=== PATIENT | male | born 1990 | race Caucasian/White ===

== ENCOUNTER 2019-11-29 10:41 | Emergency (ER) | payer OTHER, SELFPAY ==
[2019-11-29 11:20] VITALS: BP 123/67; PULSE 103; RESP 20; TEMP 38.4; O2SAT 96
--- NOTE | 2019-11-29 11:41 | ED.URI ---
HPI - URI/Sore Throat General Chief Complaint: Upper Respiratory Infection Stated Complaint: cough Time Seen by Provider: 11/29/19 11:41 Source: patient and family Mode of arrival: ambulatory Limitations: no limitations History of Present Illness HPI Narrative: Patient presents with 2 days of cough fever runny nose and congestion. Patient states both of his children at home are positive for influenza B and now he thinks he has influenza B. Patient states he is nauseated at times but reports good p.o. intake. No diarrhea no abdominal pain normally healthy individual. MD elicited complaint: fever and cough Related Data Allergies Allergy/AdvReac Type Severity Reaction Status Date / Time codeine Allergy Unknown Other Verified 11/29/19 11:28 Review of Systems Review of Systems: Narrative: CONSTITUTIONAL: Denies fever, chills, or sweats. EYES: Denies visual changes, redness, or discharge. ENT: Denies sore throat, or otalgia. CARDIOVASCULAR: Denies chest pain, palpitations, or edema. RESPIRATORY: Denies cough or dyspnea. GASTROINTESTINAL: Denies abdominal pain, nausea, vomiting, or diarrhea. GENITOURINARY: Denies dysuria or hematuria. SKIN: Denies rash or itching. MUSCULOSKELETAL: Denies back pain, joint pain, or myalgia. NEUROLOGIC: Denies headache, numbness, or weakness. PSYCHIATRIC: Denies anxiety or depression. PMFSH Comments At time of signature, agree with nursing past medical, surgical, social and family history. There is no relevant family history pertinent to the presenting complaint Exam Narrative: Exam Narrative: GENERAL: Well-appearing, well-nourished, and in no acute distress. HEAD: Normocephalic, atraumatic. EYES: PERRLA and EOMI. ENT: Nares clear, no rhinorrhea or epistaxis. Mucous membranes moist. NECK: Supple. CHEST: Clear to auscultation. No respiratory distress. HEART: Regular rate and rhythm. No murmur heard. Normal peripheral pulses. ABDOMEN: Soft, nontender, nondistended, normal active bowel sounds. EXTREMITIES: Normal range of motion. No edema. SKIN: Warm, dry, no rash. NEURO: No focal deficits. Alert and oriented x3. Waves Coma Scale Eye Opening: Spontaneous 4 Lisa Coma Scale Motor: Obeys Commands 6 Waves Coma Scale Verbal: Oriented 5 Waves Coma Scale Total 15 Course Vital Signs Vital signs: Vital Signs Temperature 38.4 C H 11/29/19 11:20 Pulse Rate 103 H 11/29/19 11:20 Respiratory Rate 20 11/29/19 11:20 Blood Pressure 123/67 11/29/19 11:20 Pulse Oximetry 96 11/29/19 11:20 Temperature 38.4 C H 11/29/19 11:20 Pulse Rate 103 H 11/29/19 11:20 Respiratory Rate 20 11/29/19 11:20 Blood Pressure 123/67 11/29/19 11:20 Pulse Oximetry 96 11/29/19 11:20 Please BRI schedule a followup visit with your personal physician for further evaluation and treatment. Including recheck and discussion of your blood pressure. If your symptoms persist, change or worsen significantly before you can contact your personal physician then please, without delay, go to the emergency department for further evaluation MDM - URI/Sore Throat Differential Diagnosis Differential diagnosis: Likely upper respiratory infection, otitis media, sinusitis, viral infection and influenza Lab Data Labs: Influenza A Screen Negative Reference Range: Negative Influenza B Screen Positive Reference Range: Negative Critical Care Time Critical Care Time Critical Care Time: No Discharge Plan Discharge Clinical Impression: Influenza, Influenza B Patient Disposition: Home, Self-Care Condition: Stable Instructions: Antibiotic Form Additional Instructions: Stay home - protect others by not exposing them. You are a public health risk if you have the flu. Don't go into public unless necessary. - Wash your hands, cover your cough/sneeze. - Stay hydrated - sip on things frequently. Water, tea, diluted lemon juice, and bone broth are all goo
== END 2019-11-29 11:57 | disposition home or self-care (01) ==
PROVIDERS: Emergency Provider Nurse Practitioner Family; PCP Internal Medicine
DX: J10.1 Influenza due to other identified influenza virus with other respiratory manifestations (principal); J45.909 Unspecified asthma, uncomplicated
CPT/HCPCS: 87804; 99213; G0463

== ENCOUNTER 2025-02-08 11:04 | Outpatient (CLI) | payer OTHER, SELFPAY ==
--- NOTE | ~2025-02-08 | XR_ITS ---
Clinical Indication: Shortness of breath PA and lateral views of the chest: Comparison: None Findings: The lungs are clear, without evidence of focal consolidation or pleural effusion. Cardiome diastinal silhouette is within normal limits. Bones and soft tissues are unremarkable. Impression: Normal chest. Reviewed, dictated and finalized at [facility]. Impression: Normal chest.
--- NOTE | ~2025-02-08 | XR_ITS ---
Supine and upright views of the abdomen Clinical history: Abdominal pain Findings: Bowel gas pattern is nonspecific. No evidence for obstruction or free air. No abnormal mass lesion or calcification is seen. Osseous structures are intact. Impression: No significant abnormality is seen. Reviewed, dictated and finalized at [facility]. Impression: No significant abnormality is seen.
--- OUTSIDE RECORDS SUMMARY | 2025-02-08 11:57 | XMS_ITS | Clinical Summary ---
Author Organization [facility] Mad Mimi Address [address] [place] [address] Care Team Providers Care Digging Machine Operator Name Role Phone Vinod Berg MD Primary Care Provider [phone] Source Comments [facility],non-owned Affiliates and Associated Physician Practices is amultiple site organization consisting of ambulatory clinics and hospital sitesin [place], [place], [place] and [place]. This disclosure is being madepursuant to the Care Everywhere program and may not contain all information available regarding this patient. Last updated 18.[facility] Allergies Active Allergy Reactions Criticality Noted Date Comments Codeine Rash Medium 10/13/2016 Medications * Be aware that medications may not be up to date on this document. Alwaysverify current medications with the patient. No known medications Social History Tobacco Use Types Packs/Day Years Used Date Smoking Tobacco: Every Day Sex and Gender Information Value Date Recorded Sex Assigned at Not on file Legal Sex Male 11:29 AM DRILLING MANAGER Gender Identity Not on file Sexual Orientation Not on file Last Filed Vital Signs Vital Sign Reading Time Taken Comments Blood Pressure 122/80 10/13/2016 11:58 AM DRILLING MANAGER Pulse 98 10/13/2016 11:58 AM DRILLING MANAGER Temperature 37.2 C (99 F) 10/13/2016 11:58 AM DRILLING MANAGER Respiratory Rate - - Oxygen Saturation - - Inhaled Oxygen Concentration - - Weight 81.6 kg (180 lb) 10/13/2016 11:58 AM DRILLING MANAGER Height 177.8 cm (5' 10 ) 10/13/2016 11:58 AM DRILLING MANAGER Body Mass Index 25.83 10/13/2016 11:58 AM DRILLING MANAGER Plan of Treatment Health Maintenance Due Date Last Done Comments HIV SCREENING 2007 HEPATITIS C SCREENING 05/13/2010 DTAP/TDAP/TD VACCINES (1 - Tdap) 2011 HEPATITIS B VACCINE (1 of 3 - 19+ 3-dose series) 2011 COVID-19 VACCINE (1 - 2023-2 5 season) 2024 DEPRESSION SCREENING 10/25/2024 INFLUENZA VACCINE (Season Ended) 2025 ZOSTER VACCINE (1 of 2) 2042 HIB VACCINE Aged Out No longer eligi ble based on patient's age to complete this topic HPV VACCINE Aged Out No longer eligi ble based on patient's age to complete this topic MENINGOCOCCAL (Group B) VACC INE SHARED DECISION-MAKING Aged Out No longer eligibl e based on patient's age to complete this topic MENINGOCOCCAL GROUPS A/C/Y/W VACCINE Aged Out No longer eligible b ased on patient's age to complete this topic PNEUMOCOCCAL VACCINE Aged Out No long er eligible based on patient's age to complete this topic Insurance Care Teams Digging Machine Operator Relationship Specialty Start Date End Date Vinod Berg MD PCP - General Family Medicine 10/13/16
--- OUTSIDE RECORDS SUMMARY | 2025-02-08 11:58 | XMS_ITS | Referral Summary ---
Author Organization [facility] [address] [facility] lt Address [address] [place] [address] Care Team Providers Care Fine Grade Bulldozer Operator Name Role Phone zEio Rdz MD Primary Care Provider Allergies Active Allergy Reactions Criticality Noted Date Comments Codeine Rash Medium 08/05/2019 Medications omeprazole (PriLOSEC) 40 mg capsuleIndicatio ns:Gastroesophag eal reflux disease, unspecified whether esophagitis present Take 1 capsule (40 mg total) by mouth daily 60 capsule 11/27/2021 Active escitalopram (LEXAPRO) 10 mg tabletIndication s:Anxiety Take 1 tablet (10 mg total) by mouth daily 60 tablet 11/27/2021 Active Active Problems Problem Noted Date Diagnosed Date Gastroesophageal reflux disease 11/27/2021 Assessment & Plan (11/27/2021 10:22 AM LINER MACHINE OPERATOR HELPER): - chronic condition - used to use omeprazole OTC, has been off medications - restart Omeprazole 40 mg daily - likely contributing to his nausea and vomiting Recommend the following changes: - Avoid trigger foods (such as spicy foods, fried foods, onions, peppermints, chocolate, high acid foods and juices, caffeinated beverages, carbonated beverages, and tomato based products). - Avoid alcohol take. - Avoid routine use of NSAIDs. - Avoid lying down for 2-3 hours after eating. - Weight loss encouraged. - Eat smaller meals. - Avoid tobacco use. - Sleep on left side. - may sleep with bed propped. - Avoid wearing tight clothing that puts pressure on the stomach. Anxiety 10/30/2021 Assessment & Plan (11/27/2021 10:27 AM LINER MACHINE OPERATOR HELPER): - recntly noted 4 weeks ago, not at goal - anxiety noted by prior provider - was started on Zoloft, and switch to Lexapro 10 mg daily - given history of loose stools, Zoloft would not be ideal choice - follow up 8 weeks with me Assessment & Plan (10/30/2021 10:53 AM LINER MACHINE OPERATOR HELPER): Shortness of breath more likely due to anxiety than cardiopulm. Does have strong smoking hx, hx of cancer in the family in first degree relatives Will get cxr to r/o out underlying path vs issues from previous covid pna Gastritis 10/30/2021 Generalized abdominal pain 10/30/2021 Assessment & Plan (11/27/2021 10:25 AM LINER MACHINE OPERATOR HELPER): - reports chronic history of abdominal pain, loose stools for over 2-3 years - no weight loss, no blood in stools - no rectal pain - never had colonoscopy - better with bowel movement - worse with stress - likely Irritable bowel syndrome - starting SSRI for anxiety - GI referral placed as IBS is a diagnosis of exclusion, will likely need a scope - recently had very limited stool study, can use more studies but will defer at this time since referral is being placed Former smoker 05/26/2021 Assessment & Plan (05/26/2021 3:41 PM CDT): Social History Tobacco Use Smoking Status Former Smoker Packs/day: 1.25 Years: 6.00 Pack years: 7.50 Types: Cigarettes Quit date: 10/25/2015 Years since quittin.5 Smokeless Tobacco Never Used Chronic right shoulder pain 05/26/2021 Assessment & Plan (10/30/2021 10:53 AM LINER MACHINE OPERATOR HELPER): Improved at this time Assessment & Plan (05/26/2021 4:00 PM CDT): - been going on for 3+ years - no prior surgery, no hx of injury/accident/trauma - never had physical therapy - reports right arm weakness and pain - limited physical exam due to video - due to chronic nature, recommend orthopedics referral for further evaluation, referral placed - not on any medications for this - he does work out and lift weights Annual visit for general roberto lt medical examination with abnormal findings 05/26/2021 Assessment & Plan (05/26/2021 4:00 PM CDT): - Acute concerns: right shoulder pain - Mental health: no significant psychiatric/mental health conditions affecting her day to day functioning - Nutrition: Stressed importance of moderation in sodium/caffeine intake, saturated fat and cholesterol, caloric balance, sufficient intake of fresh fruits, vegetables Immunizations Immunization Administration Dates Next Due DTP 10/13/1994,08/27/1993,1992 ,1992 DTaP 11/16/1996 HiB 11/26/1993,08/27/1993,1992 ,1992 Influenza, Unspecified 07/25/2021(Deferr ed: Patient Refused),07/25/2020(Deferred: Patient Refused) MMR 11/16/1996,11/26/1993 OPV 11/16/1996,1992,1992 Tdap 10/30/2021 Social History Tobacco Use Types Packs/Day Years Used Date Smoking Tobacco: Former Cigarettes 1.3 6 0 10/25/2009 - 10/25/2015 Smokeless Tobacco: Never PHQ-2 Answer Date Recorded PHQ-2 Total Score (If total score is 3 or more points, staff should administer the PHQ-9) 0 11/27/2021 Personal Safety Answer Date Recorded Getting School Help Needed Not on file 12/19 Sex and Gender Information Value Date Recorded Sex Assigned at Not on file Legal Sex Male 6:41 PM LINER MACHINE OPERATOR HELPER Gender Identity Male 05/26/2021 11:59 AM CDT Sexual Orientation Straight 05/26/2021 11 :59 AM CDT Last Filed Vital Signs Vital Sign Reading Time Taken Comments Blood Pressure 104/76 10/30/2021 10:15 AM LINER MACHINE OPERATOR HELPER Pulse 77 10/30/2021 10:15 AM LINER MACHINE OPERATOR HELPER Temperature 36.7 C (98 F) 06/01/2020 8:29 AM CDT Respiratory Rate 16 10/30/2021 10:15 AM LINER MACHINE OPERATOR HELPER Oxygen Saturation 97% 10/30/2021 10:15 AM LINER MACHINE OPERATOR HELPER Inhaled Oxygen Concentration - - Weight 95.3 kg (210 lb) 11/27/2021 9:41 AM LINER MACHINE OPERATOR HELPER Height 177.8 cm (5' 10 ) 11/27/2021 9:41 AM LINER MACHINE OPERATOR HELPER Body Mass Index 30.13 11/27/2021 9:41 AM LINER MACHINE OPERATOR HELPER Plan of Treatment Not on file Insurance [employer]US Care Teams Fine Grade Bulldozer Operator Relationship Specialty Start Date End Date Ezio Rdz MD PCP - General Family Medicine 05/26/21
--- OUTSIDE RECORDS SUMMARY | 2025-02-08 11:58 | XMS_ITS | Continuity of Care Document ---
Author Organization [facility] Address [address] [place] [address] [place] [address] Phone Care Team Providers Care Final Rail Cutter Name Role Phone Johan Suárez MD Unavailable Unavailable Advance Directives Directive Yes / No Effective Date File Name No Information Encounters Encounter Description Practice Location Reason(s) For Visit Diagnoses Date Provider Providers Copied on Encounter [facility], [id number] [place] [address] [address], [place], [place], [id number], tel:[phone] [place] Professional No Information 0-200 [address] Jose Armando Prado. [address], [place], [id number], . tel:[phone] Referring Provider: Johan Roman [address] [place], [address] . tel:[phone] Family History Family Member Type Diagnosis Age At Onset No Information Payers Payer name Insurance type Covered libertarian ID Authoriza tion(s) Medicaid [facility] [id number] Social History Type Description Quantity Date Captured Comments Sex Male Smoking Status No Information Chief Complaint And Reason For Visit No Information Reason For Referral Reason For Referral No Information History Of Present Illness Encounter Date Complaint History Of Prese nt Illness No Information Functional Status Date Functional Assessmen t No Information Instructions Date Instruction Additional Infor mation No Information Assessments Type Assessment Date No Information Patient Care Teams Name Effective Dates (start - stop) Status Members No Information
--- OUTSIDE RECORDS SUMMARY | 2025-02-08 11:58 | XMS_ITS | Clinical Summary ---
Author Organization [facility] [address] [facility] Address [address] [place] [address] Care Team Providers Care Radio Performer Name Role Phone Ezio Rdz MD Primary Care Provider Allergies Active [...] 11/27/2021 Assessment & Plan (11/27/2021 10:22 AM SILK CREPE MACHINE OPERATOR): - chronic condition - used to use [...] 10/30/2021 Assessment & Plan (11/27/2021 10:27 AM SILK CREPE MACHINE OPERATOR): - recntly noted 4 weeks ago, not at goal - anxiety noted by prior provider - was started on Zoloft, and switch to Lexapro 10 mg daily - given history of loose stools, Zoloft would not be ideal choice - follow up 8 weeks with me Assessment & Plan (10/30/2021 10:53 AM SILK CREPE MACHINE OPERATOR): Shortness of breath more likely due to anxiety than cardiopulm. Does have strong smoking hx, hx of cancer in the family in first degree relatives Will get cxr to r/o out underlying path vs issues from previous covid pna Gastritis 10/30/2021 Generalized abdominal pain 10/30/2021 Assessment & Plan (11/27/2021 10:25 AM SILK CREPE MACHINE OPERATOR): - reports chronic history of abdominal pain, [...] 05/26/2021 Assessment & Plan (10/30/2021 10:53 AM SILK CREPE MACHINE OPERATOR): Improved at this time Assessment & Plan [...] Refused) MMR 11/16/1996,11/26/1993 OPV 11/16/1996,1992,1992 Tdap 10/30/2021 Surgical History Surgery Date Site/Laterality Comments TONSILLECTOMY THROAT SURGERY Medical History Medical History Date Comments No pertinent past medical history Migraines Family History Medical History Relation Name Comments No Known Problems Brother No Known Problems Daughter 1 No Known Problems Daughter 2 No Known Problems Daughter 3 Cancer Father Brain Lung cancer Father Pancreatic cancer Father smoking Father No Known Problems Mother No Known Problems Sister Relation Name Status Comments Brother Alive Daughter 1 Alive Daughter 2 Alive Daughter 3 Alive Father Mother Alive Sister Alive Social History Tobacco Use Types Packs/Day Years [...] on file Legal Sex Male 6:41 PM SILK CREPE MACHINE OPERATOR Gender Identity Male 05/26/2021 11:59 AM CDT Sexual Orientation Straight 05/26/2021 11 :59 AM CDT Obstetrics History Last Filed Vital Signs Vital Sign Reading Time Taken Comments Blood Pressure 104/76 10/30/2021 10:15 AM SILK CREPE MACHINE OPERATOR Pulse 77 10/30/2021 10:15 AM SILK CREPE MACHINE OPERATOR Temperature 36.7 C (98 F) 06/01/2020 8:29 AM CDT Respiratory Rate 16 10/30/2021 10:15 AM SILK CREPE MACHINE OPERATOR Oxygen Saturation 97% 10/30/2021 10:15 AM SILK CREPE MACHINE OPERATOR Inhaled Oxygen Concentration - - Weight 95.3 kg (210 lb) 11/27/2021 9:41 AM SILK CREPE MACHINE OPERATOR Height 177.8 cm (5' 10 ) 11/27/2021 9:41 AM SILK CREPE MACHINE OPERATOR Body Mass Index 30.13 11/27/2021 9:41 AM SILK CREPE MACHINE OPERATOR Plan of Treatment Health Maintenance Due Date Last Done Comments Hepatitis C Screening 1992 Varicella Vaccines (1 of 2 - 13+ 2-dose series) 2005 Hepatitis B Screening 2010 Regular Well Visit/Exam 18-64 05/26/2022 05/26/2021 Depression Screening 11/27/2022 11/27/2021, 10/30/2021, 05/26/2021 Covid-19 Vaccine ( season) 2024 02/27/2021, 01/30/2021 Influenza Vaccine (#1) 2024 DTaP/Tdap/Td Vaccine (7 - Td or Tdap) 10/30/2031 10/30/2021, 11/16/1996, 10/13/1994, Additional history exists HPV Vaccines Aged Out No longer eligi ble based on patient's age to complete this topic Pneumococcal vaccine <65 Aged Out No longer eligible based on patient's age to complete this topic Insurance [employer]US [place] [id number] Care Teams Radio Performer Relationship Specialty Start Date End Date Ezio Rdz MD PCP - General Family Medicine 05/26/21
--- OUTSIDE RECORDS SUMMARY | 2025-02-08 11:58 | XMS_ITS | Clinical Summary ---
Author Organization [facility] Address [address] [place] [address] Phone Care Team Providers Care Mailroom Clerk Name Role Phone Unavailable Primary Care Provider Unavailabl e Allergies Active Allergy Reactions Criticality Noted Date Comments Codeine Rash Medium 10/13/2016 Medications Clindamycin HCl 300 MG Capsule TK 1 C PO TID 0 8 Active mupirocin (BACTROBAN) 2 % Ointment APPLY OINTMENT TO AFFECTED AREA TID 1 8 Active Meloxicam 15 MG TabletIndication s:Right shoulder pain, unspecified chronicity Take 1 Tab by mouth daily. Take with food 30 Tab 8 Active Active Problems Problem Noted Date Diagnosed Date Anxiety Gastritis Family History Medical History Relation Name Comments Cancer Father No Known Problems Mother Relation Name Status Comments Father Mother Alive Social History Tobacco Use Types Packs/Day Years Used Date Smoking Tobacco: Former Cigarettes Cigars Smokeless Tobacco: Never Tobacco Cessation:Counseling Given: Yes Comments:patient states he only vapes Alcohol Use Standard Drinks/Week Comments Yes 0 (1 standard drink = 0.6 oz pur e alcohol) Sexually Active Control Partners Comments Yes Female Sex and Gender Information Value Date Recorded Sex Assigned at Not on file Legal Sex Male 11:19 PM CDT Gender Identity Not on file Sexual Orientation Not on file Last Filed Vital Signs Vital Sign Reading Time Taken Comments Blood Pressure 122/74 01/03/2018 3:24 PM CDT Pulse 73 01/03/2018 3:24 PM CDT Temperature 36.7 C (98 F) 01/03/2018 3:24 PM CDT Respiratory Rate 18 01/03/2018 3:24 PM CDT Oxygen Saturation 98% 01/03/2018 3:24 PM CDT Inhaled Oxygen Concentration - - Weight 90.3 kg (199 lb) 01/03/2018 3:24 PM CDT Height 177.8 cm (5' 10 ) 01/03/2018 3:24 PM CDT Body Mass Index 28.55 01/03/2018 3:24 PM CDT Plan of Treatment Health Maintenance Due Date Last Done Comments Hepatitis C Virus (HCV) Screening 1992 TdaP Immunization 1992 Hepatitis B Immunization (1 of 3 - 19+ 3-dose series) 2011 Influenza Immunization (#1) 2024 SARS-COV-2 Immunization (2023- season) 2024 02/27/2021, 01/30/2021 Respiratory Syncytial Virus (RSV) Immunization (Adult) (1 - 1-dose 75+ series) 2067 Meningococcal Immunization (ACWY) Aged Out No longer eligible b ased on patient's age to complete this topic Pneumococcal Immunization Combined Aged Out No longer eligible b ased on patient's age to complete this topic Rotavirus Immunization Aged Out No lo nger eligible based on patient's age to complete this topic Insurance MEDICAID [facility] [employer]
[2025-02-08 19:21] LABS: Basophils Percent Auto 0.6 % (0.2-1.2); Eosinophils Absolute Auto 0.1 K/mm3 (0-0.3); Hematocrit 46.2 % (42.0-52.0); Hemoglobin 15.1 g/dL (14.0-18.0); Immature Granulocyte Absolute 0.01 K/mm3 (0.00-0.031); Immature Granulocyte Percent A 0.2 % (0-0.5); Lymphocytes Absolute Auto 1.88 K/mm3 (0.9-3.2); Lymphocytes Percent Auto 35.9 % (18.3-44.2); Mean Corpuscular HGB Conc 32.7 g/dl (32-36); Mean Corpuscular Hemoglobin 29.5 pg (26-34); Mean Corpuscular Volume 90.4 fl (80-100); Mean Platelet Volume 9.7 fl (7.4-10.4); Monocytes Absolute Auto 0.4 K/mm3 (0.1-0.6); Monocytes Percent Auto 8.4 % (2.6-8.5); Neutrophils Absolute Auto 2.8 K/mm3 (1.3-6.7); Neutrophils Percent Auto 53.9 % (45.5-73.1); Platelet Count Result 295 k/mm3 (150-375); Red Blood Count 5.11 M/mm3 (4.6-6.20); Red Cell Distribution Width 12.7 % (11.5-14.5); White Blood Count 5.2 K/mm3 (4.5-10.0)
[2025-02-08 20:06] LABS: Alanine Aminotransferase 40 U/L (6-50); Albumin Level 4.6 g/dL (3.5-5.1); Alkaline Phosphatase 38 U/L (38-126); Amylase 71 U/L (30-110); Anion Gap 10 mmol/L (4-12); Aspartate Amino Transferase 58 U/L (17-59); Bilirubin,Total 0.4 mg/dL (0.2-1.3); Blood Urea Nitrogen 16 mg/dL (9-20); Calcium 9.1 mg/dL (8.4-10.2); Carbon Dioxide 25 mmol/L (22-30); Chloride 102 mmol/L (98-107); Cholesterol 216 mg/dL (0-200); Estimated Glomerular Filt Rate > 60; Glucose 116 mg/dL (65-110); HDL Direct 53 mg/dL; Lipase 98 U/L (23-300); Potassium 3.9 mmol/L (3.4-5.0); Sodium 137 mmol/L (137-145); Triglycerides 130 mg/dL (<150)
[2025-02-08 20:18] LABS: LDL Cholesterol Direct 121 mg/dL
[2025-02-08 20:36] LABS: Thyroid Stimulating Hormone 0.453 uIU/mL (0.465-4.680)
[2025-02-08 20:45] LABS: Free T4 Free Thyroxine 1.16 ng/dL (0.78-2.19)
== END 2025-02-08 11:05 | disposition home or self-care (01) ==
PROVIDERS: PCP Nurse Practitioner Adult Health; Visit Provider Nurse Practitioner Adult Health
DX: Z13.9 Encounter for screening, unspecified (principal); R06.02 Shortness of breath; R10.13 Epigastric pain
CPT/HCPCS: 36415; 71046; 74018; 80053; 80061; 82150; 83690; 84439; 84443; 85025

== ENCOUNTER 2025-02-15 13:47 | Outpatient (CLI) | payer OTHER, SELFPAY ==
--- OUTSIDE RECORDS SUMMARY | 2025-02-15 14:54 | XMS_ITS | Clinical Summary ---
Author Organization [facility] 163 [facility] Address [address] [place] [address] Care Team Providers Care Metal Sheet Roller Operator Name Role Phone Ezio Rdz MD Primary [...] 11/27/2021 Assessment & Plan (11/27/2021 10:22 AM BASEBOARD HEATING INSTALLER): - chronic condition - used to use [...] 10/30/2021 Assessment & Plan (11/27/2021 10:27 AM BASEBOARD HEATING INSTALLER): - recntly noted 4 weeks ago, not at goal - anxiety noted by prior provider - was started on Zoloft, and switch to Lexapro 10 mg daily - given history of loose stools, Zoloft would not be ideal choice - follow up 8 weeks with me Assessment & Plan (10/30/2021 10:53 AM BASEBOARD HEATING INSTALLER): Shortness of breath more likely due to anxiety than cardiopulm. Does have strong smoking hx, hx of cancer in the family in first degree relatives Will get cxr to r/o out underlying path vs issues from previous covid pna Gastritis 10/30/2021 Generalized abdominal pain 10/30/2021 Assessment & Plan (11/27/2021 10:25 AM BASEBOARD HEATING INSTALLER): - reports chronic history of abdominal pain, [...] 05/26/2021 Assessment & Plan (10/30/2021 10:53 AM BASEBOARD HEATING INSTALLER): Improved at this time Assessment & Plan [...] on file Legal Sex Male 6:41 PM BASEBOARD HEATING INSTALLER Gender Identity Male 05/26/2021 11:59 AM CDT Sexual Orientation Straight 05/26/2021 11 :59 AM CDT Obstetrics History Last Filed Vital Signs Vital Sign Reading Time Taken Comments Blood Pressure 104/76 10/30/2021 10:15 AM BASEBOARD HEATING INSTALLER Pulse 77 10/30/2021 10:15 AM BASEBOARD HEATING INSTALLER Temperature 36.7 C (98 F) 06/01/2020 8:29 AM CDT Respiratory Rate 16 10/30/2021 10:15 AM BASEBOARD HEATING INSTALLER Oxygen Saturation 97% 10/30/2021 10:15 AM BASEBOARD HEATING INSTALLER Inhaled Oxygen Concentration - - Weight 95.3 kg (210 lb) 11/27/2021 9:41 AM BASEBOARD HEATING INSTALLER Height 177.8 cm (5' 10 ) 11/27/2021 9:41 AM BASEBOARD HEATING INSTALLER Body Mass Index 30.13 11/27/2021 9:41 AM BASEBOARD HEATING INSTALLER Plan of Treatment Health Maintenance Due Date [...] to complete this topic Insurance [employer]ICE PLUS [place] [id number] Care Teams Metal Sheet Roller Operator Relationship Specialty Start Date End Date Ezio Rdz MD PCP - General Family Medicine 05/26/21
--- OUTSIDE RECORDS SUMMARY | 2025-02-15 14:54 | XMS_ITS | Clinical Summary ---
Author Organization [facility] Address [address] [place] [address] Care Team Providers Care Pumping Plant Operator Name Role Phone Vinod Berg MD Primary Care Provider [phone] Source Comments [facility],non-owned Affiliates and Associated Physician Practices is amultiple site organization consisting of ambulatory clinics and hospital sitesin [place], [place], [place] and [place]. This disclosure is being madepursuant to the Care Everywhere program and may not contain all information available regarding this patient. Last updated 18.[facility] Allergies Active Allergy Reactions Criticality Noted Date [...] on file Legal Sex Male 11:29 AM INTEGRATION ASSISTANT Gender Identity Not on file Sexual Orientation Not on file Last Filed Vital Signs Vital Sign Reading Time Taken Comments Blood Pressure 122/80 10/13/2016 11:58 AM INTEGRATION ASSISTANT Pulse 98 10/13/2016 11:58 AM INTEGRATION ASSISTANT Temperature 37.2 C (99 F) 10/13/2016 11:58 AM INTEGRATION ASSISTANT Respiratory Rate - - Oxygen Saturation - - Inhaled Oxygen Concentration - - Weight 81.6 kg (180 lb) 10/13/2016 11:58 AM INTEGRATION ASSISTANT Height 177.8 cm (5' 10 ) 10/13/2016 11:58 AM INTEGRATION ASSISTANT Body Mass Index 25.83 10/13/2016 11:58 AM INTEGRATION ASSISTANT Plan of Treatment Health Maintenance Due Date [...] to complete this topic Insurance Care Teams Pumping Plant Operator Relationship Specialty Start Date End Date Vinod Berg MD PCP - General Family Medicine 10/13/16
--- OUTSIDE RECORDS SUMMARY | 2025-02-15 14:54 | XMS_ITS | Continuity of Care Document ---
Author Organization [facility] Address [address] [place] [address] [place] [address] Phone Care Team Providers Care Cabin Crew Name Role Phone Johan Suárez MD Unavailable Unavailable Advance Directives Directive Yes / No Effective Date File Name No Information Encounters Encounter Description Practice Location Reason(s) For Visit Diagnoses Date Provider Providers Copied on Encounter Formerly [facility], [address] [place] [address] [address], [place], [place], [id number], tel:[phone] [address] [place] Professional No Information 0-200 6 Jose Armando Prado. [address], [place], [id number], . tel:[phone] Referring Provider: Johan Roman [address] [place], [address] . tel:[phone] Family History Family Member Type Diagnosis Age At Onset No Information Payers Payer name Insurance type Covered libertarian ID Authoriza tion(s) Medicaid [facility] [id number] Social History Type Description Quantity Date Captured [...]
--- OUTSIDE RECORDS SUMMARY | 2025-02-15 14:54 | XMS_ITS | Patient Health Record ---
Author Organization [facility] Address [address] [place] [address] Care Team Providers Care Obiee Obia Solution Architect Name Role Phone Chong Bell Primary Care Provider [phone] Reason For Referral No Information Immunizations Vaccine Route Administration Date Status Comme nts COVID-19 Moderna 1ST IM Intramuscular 01/30/2021 Administe red COVID-19 Moderna 2nd IM Intramuscular 02/27/2021 Administe red Plan Of Treatment No Information Insurance Providers Payer Name Payer Address Payer Phone Subscriber Number Group Number Insured Name Patient Relationship to Insured Coverage Start Date Coverage End Date [facility] [address] [place] [address] [id number] Guy Scruggs Self - patient is the insured
--- OUTSIDE RECORDS SUMMARY | 2025-02-15 14:54 | XMS_ITS | Referral Summary ---
Author Organization [facility] Address [address] [place] [address] Care Team Providers Care Fisherman Helper Name Role Phone Ezio Rdz MD Primary [...] 11/27/2021 Assessment & Plan (11/27/2021 10:22 AM TARIFF EXPERT): - chronic condition - used to use [...] 10/30/2021 Assessment & Plan (11/27/2021 10:27 AM TARIFF EXPERT): - recntly noted 4 weeks ago, not at goal - anxiety noted by prior provider - was started on Zoloft, and switch to Lexapro 10 mg daily - given history of loose stools, Zoloft would not be ideal choice - follow up 8 weeks with me Assessment & Plan (10/30/2021 10:53 AM TARIFF EXPERT): Shortness of breath more likely due to anxiety than cardiopulm. Does have strong smoking hx, hx of cancer in the family in first degree relatives Will get cxr to r/o out underlying path vs issues from previous covid pna Gastritis 10/30/2021 Generalized abdominal pain 10/30/2021 Assessment & Plan (11/27/2021 10:25 AM TARIFF EXPERT): - reports chronic history of abdominal pain, [...] 05/26/2021 Assessment & Plan (10/30/2021 10:53 AM TARIFF EXPERT): Improved at this time Assessment & Plan [...] on file Legal Sex Male 6:41 PM TARIFF EXPERT Gender Identity Male 05/26/2021 11:59 AM CDT Sexual Orientation Straight 05/26/2021 11 :59 AM CDT Last Filed Vital Signs Vital Sign Reading Time Taken Comments Blood Pressure 104/76 10/30/2021 10:15 AM TARIFF EXPERT Pulse 77 10/30/2021 10:15 AM TARIFF EXPERT Temperature 36.7 C (98 F) 06/01/2020 8:29 AM CDT Respiratory Rate 16 10/30/2021 10:15 AM TARIFF EXPERT Oxygen Saturation 97% 10/30/2021 10:15 AM TARIFF EXPERT Inhaled Oxygen Concentration - - Weight 95.3 kg (210 lb) 11/27/2021 9:41 AM TARIFF EXPERT Height 177.8 cm (5' 10 ) 11/27/2021 9:41 AM TARIFF EXPERT Body Mass Index 30.13 11/27/2021 9:41 AM TARIFF EXPERT Plan of Treatment Not on file Insurance [employer] Care Teams Fisherman Helper Relationship Specialty Start Date End Date Ezio Rdz MD PCP - General Family Medicine 05/26/21
--- OUTSIDE RECORDS SUMMARY | 2025-02-15 14:54 | XMS_ITS | Clinical Summary ---
Author Organization [facility] Address [address] [place] [address] Phone Care Team Providers Care Stem Roller Or Crusher Operator Name Role Phone Unavailable Primary Care Provider [...]
[2025-02-15 20:17] LABS: Total Triiodothyronine (T3) 1.18 NG/ML (0.97-1.69)
[2025-02-15 20:32] LABS: Hemoglobin A1C 5.6 % (<5.7)
[2025-02-19 08:54] LABS: Thyroid Peroxidase Antibodies 17 IU/mL (<9)
== END 2025-02-15 13:48 | disposition home or self-care (01) ==
PROVIDERS: PCP Nurse Practitioner Adult Health; Visit Provider Nurse Practitioner Adult Health
DX: R79.89 Other specified abnormal findings of blood chemistry (principal)
CPT/HCPCS: 36415; 83036; 84480; 86376

== ENCOUNTER 2025-02-22 10:19 | Outpatient (CLI) | payer OTHER, SELFPAY ==
--- NOTE | ~2025-02-22 | US_ITS ---
US thyroid INDICATION: Abnormal laboratory values TECHNIQUE: Real-time sonographic images of the thyroid gland were obtained. COMPARISON: No prior studies for comparison. FINDINGS: The right thyroid lobe measures 5 x 1.8 x 2.5 cm. The left thyroid lobe measures 5 x 1.9 x 2.6 cm. There is heterogeneous echotexture and echogenicity throughout the thyroid gland. No discret e nodules identified. Increased vascular flow is present. IMPRESSION: 1. Heterogeneous thyroid gland with increased vascularity. No discrete mass identified. Reviewed, dictated and finalized at location A. IMPRESSION: 1. Heterogeneous thyroid gland with increased vascularity. No discrete mass id entified.
== END 2025-02-22 10:20 | disposition home or self-care (01) ==
LOC: GOSHIMG 10:20
PROVIDERS: PCP Nurse Practitioner Adult Health; Visit Provider Nurse Practitioner Adult Health
DX: R79.89 Other specified abnormal findings of blood chemistry (principal)
CPT/HCPCS: 76536